=== PATIENT | female | born 1975 | race African-American/Black ===

== ENCOUNTER 2016-09-26 09:21 | Emergency (ER) | payer OTHER ==
[2013-10-30 07:42] VITALS: BMI 38.1
[~2016-09-26 09:21] MED LIST: DAPSONE100 MG PO; MEDROL DOSE PACK4 MG; NORCO 5/325 TAB1 TA1 PO
== END 2016-09-26 09:23 | disposition home or self-care (01) ==
LOC: D.ER 09:21
DX: J01.90 Acute sinusitis, unspecified (principal); F32.9 Major depressive disorder, single episode, unspecified; I10 Essential (primary) hypertension

== ENCOUNTER 2016-10-02 22:22 | Emergency (ER) | payer OTHER ==
[2013-10-30 07:42] VITALS: BMI 38.1
[2016-10-03 00:22] LABS: HEMATOCRIT 32.8 % (36.0-48.0); HEMOGLOBIN 9.4 g/dL (12-16); LYMPHOCYTES 16.2 % (15-50); MCHC 28.7 g/dL (31.0-37.0); MCV 68.6 fL (80.0-100.0); MEAN PLATELET VOLUME 7.7 fL (7.4-10.4); NEUTROPHILS 70.8 % (40-80); PLATELET COUNT 456 10x3/uL (130-400); RBC 4.78 10x6/uL (4.00-5.40); RDW 19.6 % (11.5-14.5); WBC 6.6 10x3/uL (4.8-10.8)
[2016-10-03 00:23] LABS: MCH 19.7 pg (26.0-34.0)
[2016-10-03 00:36] LABS: APPEARANCE HAZY (CLEAR); BILIRUBIN NEGATIVE (NEGATIVE); COLOR YELLOW (YELLOW); GLUCOSE NEGATIVE (NEGATIVE); KETONE NEGATIVE (NEGATIVE); LEUKOCYTE ESTERASE TRACE (NEGATIVE); NITRITE NEGATIVE (NEGATIVE); PH 5.5 (5.0-6.0); PROTEIN NEGATIVE (NEGATIVE); UROBILINOGEN NORMAL (NORMAL)
[2016-10-03 00:40] LABS: WHITE CELLS - URINE 0-5 /hpf (0-5)
[2016-10-03 00:41] LABS: BACTERIA FEW /hpf (NONE SEEN); HYALINE CAST RARE /lpf (NONE SEEN)
[2016-10-03 00:49] LABS: ALKALINE PHOSPHATASE 73 U/L (46-116); ALT (SGPT) 13 U/L (10-68); BILIRUBIN - TOTAL 0.18 mg/dL (0.2-1.3); CALC OSMOLALITY 275 mosm/kg (275-300); CALCIUM 8.4 mg/dL (8.5-10.1); CARBON DIOXIDE 26.4 mmol/L (21.0-32.0); CHLORIDE - SERUM 104 mmol/L (98-107); CREATININE - SERUM 0.6 mg/dL (0.6-1.3); GLUCOSE 88 mg/dL (74-106); POTASSIUM - SERUM 3.4 mmol/L (3.5-5.1); PROTEIN - SERUM 7.8 g/dL (6.4-8.2); SODIUM 139 mmol/L (136-145); UREA NITROGEN 9 mg/dL (7-18); eGFR NON AFRICAN AMERICAN > 90 mL/min (90-120)
== END 2016-10-03 01:20 | disposition home or self-care (01) ==
LOC: D.ER 22:22
PROVIDERS: Physician Assistant Medical
DX: J06.9 Acute upper respiratory infection, unspecified (principal); N39.0 Urinary tract infection, site not specified; F17.200 Nicotine dependence, unspecified, uncomplicated; F41.9 Anxiety disorder, unspecified; F32.9 Major depressive disorder, single episode, unspecified; I10 Essential (primary) hypertension

== ENCOUNTER 2017-03-06 14:47 | Emergency (ER) | payer OTHER ==
[2013-10-30 07:42] VITALS: BMI 38.1
== END 2017-03-06 17:16 | disposition home or self-care (01) ==
LOC: D.ER 14:47
DX: R51 Headache (principal); I10 Essential (primary) hypertension; F32.9 Major depressive disorder, single episode, unspecified; F17.200 Nicotine dependence, unspecified, uncomplicated

== ENCOUNTER 2017-03-29 19:54 | Emergency (ER) | payer OTHER ==
[2013-10-30 07:42] VITALS: BMI 38.1
== END 2017-03-29 22:11 | disposition home or self-care (01) ==
LOC: D.ER 19:54
DX: L03.011 Cellulitis of right finger (principal); I10 Essential (primary) hypertension

== ENCOUNTER 2017-06-01 19:03 | Emergency (ER) | payer OTHER ==
[2013-10-30 07:42] VITALS: BMI 38.1
[2017-06-01 19:48] LABS: BASOPHILS 0.5 % (0-2); EOSINOPHILS 4.3 % (0-7); HEMATOCRIT 32.2 % (36.0-48.0); HEMOGLOBIN 9.3 g/dL (12-16); IMMATURE GRANULOCYTES 0.2 % (0-5); LYMPHOCYTES 19.4 % (15-50); MCHC 28.9 g/dL (31.0-37.0); MCV 65.8 fL (80.0-100.0); MEAN PLATELET VOLUME 8.2 fL (7.4-10.4); MONOCYTES 11.5 % (2-11); NEUTROPHILS 64.1 % (40-80); RBC 4.89 10x6/uL (4.00-5.40); RDW 19.2 % (11.5-14.5); WBC 5.6 10x3/uL (4.8-10.8)
[2017-06-01 19:50] LABS: APPEARANCE HAZY (CLEAR); COLOR DK YELLOW (YELLOW); PLATELET COUNT 313 10x3/uL (130-400)
[2017-06-01 19:51] LABS: BILIRUBIN NEGATIVE (NEGATIVE); GLUCOSE NEGATIVE (NEGATIVE); HCG URINE NEGATIVE (NEGATIVE); KETONE NEGATIVE (NEGATIVE); NITRITE NEGATIVE (NEGATIVE); PROTEIN NEGATIVE (NEGATIVE); UROBILINOGEN NORMAL (NORMAL)
[2017-06-01 19:58] LABS: BACTERIA MANY /hpf (NONE SEEN); GRANULAR CAST OCC /lpf (NONE SEEN); HYALINE CAST OCC /lpf (NONE SEEN); MUCUS >1+ /lpf (NONE SEEN)
[2017-06-01 20:02] LABS: ALKALINE PHOSPHATASE 64 U/L (46-116); ALT (SGPT) 24 U/L (10-68); AMYLASE - SERUM 63 U/L (25-115); BILIRUBIN - TOTAL 0.17 mg/dL (0.2-1.3); CALC OSMOLALITY 268 mosm/kg (275-300); CALCIUM 8.2 mg/dL (8.5-10.1); CARBON DIOXIDE 24.4 mmol/L (21.0-32.0); CHLORIDE - SERUM 104 mmol/L (98-107); CREATININE - SERUM 0.6 mg/dL (0.6-1.3); GLUCOSE 90 mg/dL (74-106); LIPASE 192 U/L (73-393); POTASSIUM - SERUM 3.3 mmol/L (3.5-5.1); PROTEIN - SERUM 7.7 g/dL (6.4-8.2); SODIUM 135 mmol/L (136-145); UREA NITROGEN 9 mg/dL (7-18); eGFR NON AFRICAN AMERICAN > 90 mL/min (90-120)
== END 2017-06-01 22:50 | disposition home or self-care (01) ==
LOC: D.ER 19:03
PROVIDERS: Family Medicine
DX: K52.9 Noninfective gastroenteritis and colitis, unspecified (principal); R11.10 Vomiting, unspecified; D50.9 Iron deficiency anemia, unspecified; E87.6 Hypokalemia; I10 Essential (primary) hypertension

== ENCOUNTER 2017-06-04 13:56 | Emergency (ER) | payer OTHER ==
[2013-10-30 07:42] VITALS: BMI 38.1
== END 2017-06-04 15:30 | disposition home or self-care (01) ==
LOC: D.ER 13:56
DX: F41.9 Anxiety disorder, unspecified (principal); K21.9 Gastro-esophageal reflux disease without esophagitis; I10 Essential (primary) hypertension; F17.200 Nicotine dependence, unspecified, uncomplicated

== ENCOUNTER 2017-09-30 14:39 | Emergency (ER) | payer OTHER ==
[2013-10-30 07:42] VITALS: BMI 38.1
== END 2017-09-30 18:18 | disposition home or self-care (01) ==
LOC: D.ER 14:39
DX: S93.602A Unspecified sprain of left foot, initial encounter (principal); X50.1XXA Overexertion from prolonged static or awkward postures, initial encounter; Y93.89 Activity, other specified; Y92.019 Unspecified place in single-family (private) house as the place of occurrence of the external cause; S93.402A Sprain of unspecified ligament of left ankle, initial encounter

== ENCOUNTER 2017-11-21 19:49 | Emergency (ER) | payer OTHER ==
[2013-10-30 07:42] VITALS: BMI 38.1
== END 2017-11-21 21:47 | disposition home or self-care (01) ==
LOC: D.ER 19:49
DX: S93.602A Unspecified sprain of left foot, initial encounter (principal); X58.XXXA Exposure to other specified factors, initial encounter; Y93.89 Activity, other specified; Y92.019 Unspecified place in single-family (private) house as the place of occurrence of the external cause

== ENCOUNTER 2018-03-17 15:29 | Emergency (ER) | payer OTHER ==
[~2018-03-17] VITALS: Ht 160 cm; Wt 90.0 kg
[2018-03-17 15:53] VITALS: Ht 160 cm; Wt 90.0 kg
[2018-03-17 16:31] LABS: EOSINOPHILS 8.6 % (0-7); HEMATOCRIT 32.6 % (36.0-48.0); HEMOGLOBIN 9.7 g/dL (12-16); LYMPHOCYTES 33.3 % (15-50); MCHC 29.8 g/dL (31.0-37.0); MCV 66.4 fL (80.0-100.0); MEAN PLATELET VOLUME 8.6 fL (7.4-10.4); MONOCYTES 11.4 % (2-11); NEUTROPHILS 45.7 % (40-80); RBC 4.91 10x6/uL (4.00-5.40); RDW 19.9 % (11.5-14.5); WBC 5.1 10x3/uL (4.8-10.8)
[2018-03-17 16:50] LABS: MCH 19.8 pg (26.0-34.0); PLATELET COUNT 413 10x3/uL (130-400)
[2018-03-17 16:52] LABS: ALBUMIN 3.1 g/dL (3.4-5.0); ALKALINE PHOSPHATASE 78 U/L (46-116); ALT (SGPT) 14 U/L (10-68); AMYLASE - SERUM 71 U/L (25-115); BILIRUBIN - TOTAL 0.26 mg/dL (0.2-1.3); CALC OSMOLALITY 274 mosm/kg (275-300); CALCIUM 8.4 mg/dL (8.5-10.1); CARBON DIOXIDE 26.8 mmol/L (21.0-32.0); CHLORIDE - SERUM 103 mmol/L (98-107); CREATININE - SERUM 0.5 mg/dL (0.6-1.3); GLUCOSE 96 mg/dL (74-106); LIPASE 153 U/L (73-393); POTASSIUM - SERUM 3.7 mmol/L (3.5-5.1); PROTEIN - SERUM 8.3 g/dL (6.4-8.2); SODIUM 138 mmol/L (136-145); UREA NITROGEN 9 mg/dL (7-18); eGFR NON AFRICAN AMERICAN > 90 mL/min (90-120)
[2018-03-17] MEDS ORDERED: DULCOLAX5 MG PO (19:30)
[2018-03-17] MEDS ORDERED: KLONOPIN0.5 MG PO (19:30)
[2018-03-17 21:01] VITALS: BP 150/92
== END 2018-03-17 21:02 | disposition home or self-care (01) ==
LOC: D.ER 15:29
PROVIDERS: Family Medicine
DX: K59.00 Constipation, unspecified (principal); F17.200 Nicotine dependence, unspecified, uncomplicated

== ENCOUNTER 2018-03-22 20:06 | Emergency (ER) | payer OTHER ==
[~2018-03-22] VITALS: Ht 160 cm; Wt 68.2 kg
[~2018-03-22 20:06] MED LIST changes: +DULCOLAX5 MG PO; +KLONOPIN0.5 MG PO
[2018-03-22 20:13] VITALS: Ht 160 cm; Wt 68.2 kg
[2018-03-22] MEDS ORDERED: ANTIVIRAL (20:14)
[2018-03-22] MEDS ORDERED: CORTISPORIN OTI10 M1 EACH EAR (20:33)
[2018-03-22] MEDS ORDERED: AMOXICILLIN875 MG PO (20:33)
[2018-03-22 21:06] VITALS: BP 127/76
== END 2018-03-22 21:06 | disposition home or self-care (01) ==
LOC: D.ER 20:06
DX: H66.91 Otitis media, unspecified, right ear (principal); B20 Human immunodeficiency virus [HIV] disease; F17.200 Nicotine dependence, unspecified, uncomplicated

== ENCOUNTER 2018-08-09 15:12 | Emergency (ER) | payer SELFPAY ==
[~2018-08-09] VITALS: Ht 160 cm; Wt 89.1 kg
[~2018-08-09 15:12] MED LIST changes: +AMOXICILLIN875 MG PO; +ANTIVIRAL; +CORTISPORIN OTI10 M1 EACH EAR
[2018-08-09 15:21] VITALS: Ht 160 cm; Wt 89.1 kg
[2018-08-09 15:40] LABS: BASOPHILS 0.6 % (0-2); EOSINOPHILS 3.9 % (0-7); HEMATOCRIT 36.6 % (36.0-48.0); HEMOGLOBIN 10.7 g/dL (12-16); IMMATURE GRANULOCYTES 0.1 % (0-5); LYMPHOCYTES 25.2 % (15-50); MCH 20.2 pg (26.0-34.0); MCHC 29.2 g/dL (31.0-37.0); MCV 68.9 fL (80.0-100.0); MEAN PLATELET VOLUME 8.4 fL (7.4-10.4); MONOCYTES 9.1 % (2-11); NEUTROPHILS 61.1 % (40-80); PLATELET COUNT 358 10x3/uL (130-400); RBC 5.31 10x6/uL (4.00-5.40); RDW 18.4 % (11.5-14.5); WBC 9.3 10x3/uL (4.8-10.8)
[2018-08-09 16:05] LABS: ALBUMIN 2.7 g/dL (3.4-5.0); ALKALINE PHOSPHATASE 56 U/L (46-116); ALT (SGPT) 12 U/L (10-68); AMYLASE - SERUM 68 U/L (25-115); BILIRUBIN - TOTAL 0.18 mg/dL (0.2-1.3); CALC OSMOLALITY 273 mosm/kg (275-300); CALCIUM 8.5 mg/dL (8.5-10.1); CARBON DIOXIDE 27.2 mmol/L (21.0-32.0); CHLORIDE - SERUM 101 mmol/L (98-107); CREATININE - SERUM 0.7 mg/dL (0.6-1.3); GLUCOSE 95 mg/dL (74-106); LIPASE 165 U/L (73-393); POTASSIUM - SERUM 3.6 mmol/L (3.5-5.1); PROTEIN - SERUM 7.6 g/dL (6.4-8.2); SODIUM 137 mmol/L (136-145); UREA NITROGEN 12 mg/dL (7-18); eGFR NON AFRICAN AMERICAN > 90 mL/min (90-120)
[2018-08-09 16:26] LABS: APPEARANCE CLEAR (CLEAR); BILIRUBIN NEGATIVE (NEGATIVE); COLOR YELLOW (YELLOW); GLUCOSE NEGATIVE (NEGATIVE); KETONE NEGATIVE (NEGATIVE); NITRITE NEGATIVE (NEGATIVE); PROTEIN NEGATIVE (NEGATIVE); UROBILINOGEN NORMAL (NORMAL)
[2018-08-09 16:28] LABS: RED CELLS - URINE 0-5 /hpf (0-5); WHITE CELLS - URINE 0-5 /hpf (0-5)
[2018-08-09 16:29] LABS: BACTERIA MODERATE /hpf (NONE SEEN)
[2018-08-09 20:13] VITALS: BP 133/87
== END 2018-08-09 20:14 | disposition left against medical advice (07) ==
LOC: D.ER 15:12
PROVIDERS: Family Medicine
DX: R11.2 Nausea with vomiting, unspecified (principal); B20 Human immunodeficiency virus [HIV] disease; F17.200 Nicotine dependence, unspecified, uncomplicated

== ENCOUNTER 2019-04-06 10:11 | Emergency (ER) | payer MEDICAID ==
[~2019-04-06] VITALS: Ht 160 cm; Wt 86.4 kg
[2019-04-06 10:42] VITALS: Ht 160 cm; Wt 86.4 kg
[2019-04-06] MEDS ORDERED: ANTIVERT12.5 MG PO (11:59)
[2019-04-06] MEDS ORDERED: OMNICEF300 MG PO (11:59)
[2019-04-06 12:10] VITALS: BP 144/60
== END 2019-04-06 12:11 | disposition home or self-care (01) ==
LOC: D.ER 10:11
DX: R42 Dizziness and giddiness (principal); J06.9 Acute upper respiratory infection, unspecified; B20 Human immunodeficiency virus [HIV] disease; F17.210 Nicotine dependence, cigarettes, uncomplicated